=== PATIENT | female | born 1960 | race Caucasian/White ===

== ENCOUNTER → 2023-07-16 08:18 | Outpatient (REF) | payer OTHER, SELFPAY | LOC: WDC 08:18 | PROVIDERS: ATTENDING PHYSICIAN Family Medicine | DX: Z12.31 Encounter for screening mammogram for malignant neoplasm of breast (principal) | CPT/HCPCS: 77063; 77067 ==

== ENCOUNTER → 2024-07-28 17:41 | Outpatient (REF) | payer OTHER, SELFPAY | LOC: WDC 17:41 | PROVIDERS: ATTENDING PHYSICIAN Family Medicine | DX: Z12.31 Encounter for screening mammogram for malignant neoplasm of breast (principal) | CPT/HCPCS: 77063; 77067 ==

== ENCOUNTER → 2024-08-04 08:30 | Outpatient (REF) | payer OTHER, SELFPAY | LOC: WDC 08:30 | PROVIDERS: ATTENDING PHYSICIAN Family Medicine | DX: R92.8 Other abnormal and inconclusive findings on diagnostic imaging of breast (principal) | CPT/HCPCS: 76642 ==

== ENCOUNTER → 2024-08-13 08:13 | Outpatient (REF) | payer OTHER, SELFPAY ==
--- NOTE | 2024-08-13 14:46 | OID.BR.INTR ---
[facility] Breast Navigator - Initial
- -
Date of Contact: 08/13/24
Met with patient. Patient given written information on navigator services at [facility]. Will follow up as needed per protocol.
== END ==
LOC: WDC 08:13
PROVIDERS: ATTENDING PHYSICIAN Family Medicine
DX: N63.24 Unspecified lump in the left breast, lower inner quadrant (principal); N63.21 Unspecified lump in the left breast, upper outer quadrant
CPT/HCPCS: 88305; 19083; 19084; 88341; 88342; 88360; A4648

== ENCOUNTER 2024-09-09 06:04 | Day surgery (SDC) | payer OTHER, SELFPAY ==
[2024-09-03 10:31] LABS: ALT (SGPT) 16 U/L (0-35); AST (SGOT) 20 U/L (14-36); Albumin 4.6 g/dl (3.5-5.0); Alkaline Phosphatase 42 U/L (38-126); Blood Urea Nitrogen 14 mg/dl (7-17); Calcium 9.3 mg/dl (8.4-10.2); Carbon Dioxide 29 mmol/L (22-30); Chloride 105 mmol/L (98-107); Glucose 99 mg/dl (70-99); Potassium 4.1 mmol/L (3.5-5.1); Sodium 143 mmol/L (135-145); Total Bilirubin 0.7 mg/dl (0.2-1.3); Total Protein 7.3 g/dl (6.3-8.2); eGFR > 60.00
[2024-09-03 11:17] LABS: Prealbumin (Transthyretin) 28.4 mg/dl (17.6-36.0)
[2024-09-03 11:25] LABS: Vitamin D, 25-OH*** 35.9 ng/mL (30-80)
[2024-09-03 13:01] VITALS: BMI 26.0
[2024-09-09 06:34] VITALS: BMI 26.0
[2024-09-09 06:35] VITALS: BP 120/72
--- NOTE | 2024-09-09 07:01 | W.SUR.PREOP ---
Pre-Operative Surgical Note
-
I have examined this patient prior to the performance of the scheduled procedure.
The patient's condition is unchanged from the time of the current History and
Physical and the patient is able to undergo the scheduled procedure.
[2024-09-09 08:46] VITALS: BP 113/47
--- NOTE | 2024-09-09 08:59 | W.IMMPOSTOP ---
Surgical Immed Post Op Note
-
Primary Surgeon: Davidson
Assisting Surgeon: None
Pre-op Diagnosis: Left breast ca
Post-op Diagnosis: Left breast ca
Procedure Performed: Insertion right portacath
Anesthesia Type: TIVA
Specimen / Cultures: None
Estimated Blood Loss: 2cc
Complications: None
Operative Findings: None
[2024-09-09 09:00] VITALS: BP 108/62
--- NOTE | 2024-09-09 09:00 | OR.RPT ---
Operative Report
Operative Report
Date of Surgery: 09/09/24
Surgeon: Davidson
Pre-Op Diagnosis: Left breast ca
Post-Op Diagnosis: Left breast ca
Procedure: Insertion right portacath
The patient is a 63-year-old female with a diagnosis of left breast carcinoma requiring neoadjuvant chemotherapy who presents for right Port-A-Cath insertion. Patient presented to same-day surgical services and was prepped. DVT and antibiotic
prophylaxis were provided and she was taken to the operating room. In Trendelenburg position with shoulder roll in place, intravenous sedation was delivered. The right chest, neck, and shoulder were prepped and draped in the usual sterile fashion.
An appropriate timeout was performed by all staff.
Tissues were anesthetized with 1% lidocaine plain. Via Seldinger technique, the right subclavian vein was entered percutaneously on the first attempt. The guidewire was advanced under fluoroscopic guidance into the superior vena cava. The wire
was securely attached to the drapes. Inferior to the exit site of the guidewire, a subcutaneous pocket was fashioned sharply and with the cautery. A low-profile single-lumen port flushed with heparinized saline was passed into the port pocket.
The catheter was firmly attached and passed to the exit site of the guidewire. Using fluoroscopic guidance this was cut to a length of 17 cm.
The wire tract was dilated under fluoroscopic guidance. Dilator and sheath were passed over the wire and the wire and dilator were removed. The catheter passed easily into the superior vena cava and the tear-away sheath was removed. The port
aspirated and flushed well. The patient was taken out of Trendelenburg position. All tissues were anesthetized with 0.5% Marcaine plain. The wound was closed using simple interrupted 3-0 plain on subcutaneous tissue and a running subcuticular 4
Monocryl on skin. As the patient was receiving her first infusion this morning, the port was accessed. A serile dressing was applied and the patient was transferred to the recovery room where a stat portable chest x-ray will be obtained.
([id number])
[2024-09-09 09:15] VITALS: BP 115/48
[2024-09-09 09:30] VITALS: BP 102/56
== END 2024-09-09 10:53 | disposition home or self-care (01) ==
LOC: SDS 06:04
PROVIDERS: ATTENDING PHYSICIAN Surgery; FAMILY PHYSICIAN Family Medicine
DX: C50.912 Malignant neoplasm of unspecified site of left female breast (principal)
CPT/HCPCS: 36561; 36415; 71045; 80053; 82306; 84134; 93005; C1788

== ENCOUNTER → 2024-12-01 07:27 | Outpatient (REF) | payer OTHER, SELFPAY | LOC: RCS 07:27 | PROVIDERS: ATTENDING PHYSICIAN Nurse Practitioner Adult Health; FAMILY PHYSICIAN Family Medicine | DX: C50.312 Malignant neoplasm of lower-inner quadrant of left female breast (principal); L64.0 Drug-induced androgenic alopecia | CPT/HCPCS: 93306; 93356 ==

== ENCOUNTER 2025-03-22 14:19 | Emergency (ER) | payer OTHER, SELFPAY ==
[2025-03-22 14:21] VITALS: BP 138/83
[2025-03-22 14:56] VITALS: BMI 25.8
--- NOTE | 2025-03-22 15:11 | ED.SKININJ ---
Addendum entered and electronically signed by Vipul Pimentel PA-C 03/25/25 09:46:
Patient prescribed Keflex. Klebsiella on wound culture. Contacted patient who states infection is mostly resolved and seems to be healing well. At this time no change in antibiotics. Continue antibiotics until completion. Patient aware of
return precautions to the ER.
Original Note:
HPI-Injury
General
Chief Complaint: Skin Problem
Source: patient
Exam Limitations: none
Time Seen by Provider: 03/22/25 14:55
Nursing documentation reviewed up to this point in time: agreed with
History of Present Illness-Injury
Is this injury a work related problem?: No
Is pt an associate of [facility]?: No
Initial Injury comments:
Patient to the emergency department with complaint of painful skin abscess to superior scalp. States she has had scalp nodules for many years, occasionally they filled with fluid and need to be drained. States Sunday she noticed increased pain and
swelling to site. She denies fever or chills. She denies any history of MRSA. Brought self to the emergency department for evaluation.
Past History
Past History
ED Past Medical History: Cancer (Breast)
ED Past Surgical History: Tonsilectomy
Review of Systems
Review of Systems
Allergies reviewed?: Yes
All Other Systems: ROS reviewed and negative except as documented in HPI and ROS
Constitutional: Reports no symptoms
EENT: Reports no symptoms
Respiratory: Reports no symptoms
Cardiac: Reports no symptoms
ABD/GI: Reports no symptoms
: Reports no symptoms
Musculoskeletal: Reports no symptoms
Skin: Reports other (Skin abscess to superior scalp)
Neurological: Reports no symptoms
Psychiatric: Reports no symptoms
Skin Exam
Abscess
Superior scalp:
Description of abscess: fluctuant
Surrounding skin:: inflammed at abscess site
Phy Exam
General Physical Exam
General Presentation: well appearing and no apparent distress
General age: appears stated age
General Skin: warm and dry
General Habitus: normal
General Mental: alert
Skin Exam
Skin Exam: warm/dry, no rash and other (Skin abscess to superior scalp)
Psychiatric Exam
Psychiatric Exam: normal mood/affect
Course
Orders/Labs/Results
Orders:
Orders
03/22/25 15:08
Cephalexin Monohydrate [Keflex] 500 mg PO NOW STA
03/22/25 15:09
Wound Culture [Wound/Abscess/Other Culture] Urgent
BRAYNT Source: Abscess
Specimen Description:
Date Specimen was Collected: 03/22/25
Time Specimen was Collected: 15:10
Vital Signs
Initial and Last Documented VS:
Initial Vital Signs
Temp Pulse Resp BP Pulse Ox
98.5 F 91 16 138/83 98
03/22/25 14:21 03/22/25 14:21 03/22/25 14:21 03/22/25 14:21 03/22/25 14:21
Last Documented Vital Signs
Temp Pulse Resp BP Pulse Ox
98.5 F 91 16 138/83 98
03/22/25 14:21 03/22/25 14:21 03/22/25 14:21 03/22/25 14:21 03/22/25 14:21
Procedures
Incision/Drainage/Joint Aspiration
Superior scalp:
Anethesia: 1% Lidocaine
Preparation: cleaned with Betadine
Type of procedure: incise and drain
Nature of site: abscess
Description of abscess: less than 3cm
Loculations broken up: Yes
How much fluid was obtained?: large amount
Fluid description: purulent
Treatment: left open for drainage and antibiotics started
*Pulse Oximetry
SaO2: 98
Oxygen Mode of Delivery: Room air
Patient hypoxic: no
*Critical Care Note
Total Time (30-74mins, 75-104mins- exclusive of procedures): Not Applicable
Update Note
Update Note:
Patient to the emergency department for evaluation of skin abscess to superior scalp. States she has had multiple nodules on her scalp for many years. Sunday she noticed increase pain and swelling to the site. She denies fever or chills. Abscess
was infiltrated with lidocaine 1% and drained using #11 blade. Large amount of purulent discharge. Culture was obtained and sent. Will place on Keflex twice daily, first dose given in ED. She will follow-up with her family doctor. She was given
instructions on signs and symptoms to return to the emergency department and she is agreeable to this plan.
ED Attending Note
-
Portions of this chart may have been created with voice recognition software.� Occasional wrong word or��sound alike� substitutions may have occurred due to the inherent limitations of voice recognition software.
Discharge Plan
Departure
Patient Disposition: Home (Routine Discharge)
Date of Disposition: 03/22/25
Time of Disposition: 15:09
Patient with high blood pressure during this ER visit?: No
Condition: Good
Covid-19: Not Applicable
Discharge Problem:
Abscess of scalp
Instructions: Skin Abscess
Prescriptions:
New
cephalexin 500 mg capsule
500 mg PO BID 7 Days Qty: 14 0RF
Activity Restrictions/Additional Instructions:
Follow-up with your family doctor. Continue warm compresses, 15 to 20 minutes at a time, 4-5 times daily. Return to the emergency department for fever/chills, increasing pain/redness/swelling/drainage to site, or for any further concerns.
Interventions
Interventions:
*Risk Screen - Suicide Last Done: 03/22/25 14:21
*General Assessment Last Done: 03/22/25 14:55
*Neglect/Abuse Screening Last Done: 03/22/25 14:21
*ED- Fall Risk Assessment Last Done: 03/22/25 14:55
*ED COVID-19 Vaccine History Last Done: 03/22/25 14:55
*ED Influenza Vaccine History Last Done: 03/22/25 14:55
ED-Skin Assessment Last Done: 03/22/25 14:55
Discharge Date and Time
Print Language: CITIZEN OF [place]
[2025-03-22] MEDS: KEFLEX 500 MG PO (15:13)
== END 2025-03-22 15:20 | disposition home or self-care (01) ==
LOC: EMR 14:19
PROVIDERS: EMERGENCY PHYSICIAN Student in an Organized Health Care Education/Training Program; FAMILY PHYSICIAN Family Medicine
DX: L02.811 Cutaneous abscess of head [any part, except face] (principal); Z85.3 Personal history of malignant neoplasm of breast
CPT/HCPCS: 99283; 10060; 87070; 87077; 87186; 87205

== ENCOUNTER → 2025-03-30 09:19 | Outpatient (REF) | payer OTHER, SELFPAY | LOC: WDC 09:19 | PROVIDERS: ATTENDING PHYSICIAN Surgery | DX: C50.412 Malignant neoplasm of upper-outer quadrant of left female breast (principal) | CPT/HCPCS: 19285; 38792; 76942; A4648; A9541 ==

== ENCOUNTER 2025-03-31 06:28 | Day surgery (SDC) | payer OTHER, SELFPAY ==
[2025-03-17 11:01] LABS: Hematocrit 32.3 % (37.0-47.0); Hemoglobin 10.6 g/dL (12.0-16.0); Mean Corp Hgb Conc. 32.8 g/dL (33.0-37.0); Mean Corpuscular Volume 91.2 fL (81.0-99.0); Platelet Count 259 10^3/uL (130-400); Red Cell Dist. Width 15.7 % (11.5-14.5)
[2025-03-17 11:39] LABS: ALT (SGPT) 27 U/L (0-35); AST (SGOT) 33 U/L (14-36); Albumin 4.0 g/dl (3.5-5.0); Alkaline Phosphatase 46 U/L (38-126); Blood Urea Nitrogen 17 mg/dl (7-17); Calcium 9.3 mg/dl (8.4-10.2); Carbon Dioxide 29 mmol/L (22-30); Chloride 103 mmol/L (98-107); Glucose 85 mg/dl (70-99); Potassium 4.2 mmol/L (3.5-5.1); Sodium 139 mmol/L (135-145); Total Protein 6.6 g/dl (6.3-8.2); eGFR > 60.00
[2025-03-17 11:47] LABS: Prealbumin (Transthyretin) 27.7 mg/dl (17.6-36.0)
[2025-03-17 11:59] LABS: Vitamin D, 25-OH*** 27.3 ng/mL (30-80)
[2025-03-17 14:03] VITALS: BMI 26.0
[2025-03-31 11:20] VITALS: BP 131/80
[2025-03-31 11:24] VITALS: BMI 26.0
[2025-03-31] MEDS: TYLENOL 1000 MG PO (11:34)
[2025-03-31] MEDS: LOVENOX 40 MG SC (11:34)
[2025-03-31] MEDS: NORMOSOL-R/PLASMALYTE-A 1000 IV (11:34)
[2025-03-31 13:35] VITALS: BP 109/68
[2025-03-31 13:45] VITALS: BP 122/65
[2025-03-31 14:00] VITALS: BP 132/94
[2025-03-31 14:15] VITALS: BP 118/66
--- NOTE | 2025-03-31 14:19 | W.IMMPOSTOP ---
Surgical Immed Post Op Note
-
Primary Surgeon: Davidson
Assisting Surgeon: None
Pre-op Diagnosis: left breast ca S/P neoadjuvant chemotherapy
Post-op Diagnosis: same
Procedure Performed: left localized lumpectomy and sentinel node mapping and biopsy
Anesthesia Type: tiva
Specimen / Cultures: Left lumpectomy, margins,sentinel nodes
Estimated Blood Loss: 6cc
Complications: None
Operative Findings: Clip and reflector in specimen
--- NOTE | 2025-03-31 14:21 | OR.RPT ---
Addendum entered and electronically signed by Colette Cedeño MD 03/31/25 16:21:
The axillary dissection documentation is an error.
Original Note:
Operative Report
Operative Report
Date of procedure: 03/31/2025
Surgeon: Davidson
Procedure right localized lumpectomy and sentinel lymph node mapping and biopsy
Preoperative diagnosis: Left breast carcinoma status post neoadjuvant chemotherapy
Postoperative diagnosis: Same
The patient is a 64-year-old female who presented with interval change on screening mammography leading to a diagnosis of left triple negative breast carcinoma. She underwent neoadjuvant chemotherapy for T2 tumor and presents for surgical
resection. On the day prior to the procedure she presented to the [facility] where a Krysta reflector was placed at the tumor biopsy site. Technetium radiotracer was injected into the breast parenchyma. On the day of the procedure
she presented to the same-day surgical services unit. She verified site and procedures and was prepped. DVT and antibiotic prophylaxis were provided. She was transferred to the operating room and in the supine position intravenous sedation was
delivered. Left breast and axilla are prepped and draped in the usual sterile fashion. Appropriate timeout was performed by all staff members.
Due to the neoadjuvant chemotherapy treatment till radiotracer mass it was utilized and 1 cc of methylene blue was injected into the breast parenchyma. External massage was applied for 5 minutes. All tissues were anesthetized with 1% lidocaine
plain. Attention was first turned to the axilla where a curvilinear incision was made inferior to the hairline overlying the area of highest gamma count. Dissection was carried down through clavipectoral fascia using the cautery and 2 sentinel
node packets were encountered and excised. Feeding vessels were clamped and tied with 3-0 silk tie. After their removal, there was a greater than 4 fold reduction to background count. Hemostasis was verified. Marcaine 0.5% plain was instilled
and the wound was closed using simple interrupted 2-0 Polysorb on deep intermediate and subcutaneous tissue and skin was closed with a running subcuticular 4 Monocryl.
Then attention was turned to the lumpectomy. The Krysta signal was sounded and was at the edge of the nipple areolar complex at the 8 o'clock position. Therefore, a medial circumareolar incision was made sharply. The oncoplastic plane was entered
and elevated circumferentially. A wide lumpectomy was performed with the cautery. Time out of body was noted and the specimen was oriented for the pathologist. There is a strong Krysta signal within it. Specimen radiography confirmed the presence
of clip and Krysta obstetrician reflector within it. Additional margins were harvested for permanent analysis from the posterior, medial, superior, lateral, inferior, and anterior dimensions. These were oriented as well.
Hemostasis was verified in this wound. Hemoclips were placed in the resection cavity and Marcaine 0.5% plain was instilled. This wound was closed in the same manner as the axilla. Surgical glue and sterile compressive dressings were applied. All
sponge needle and instrument counts were correct the patient was transferred to same-day surgical services unit for recovery.
([id number])
Axillary Lymph Node Dissection
-
Operation performed with Curative Intent: Yes
Boundaries: Axillary Vein, Chest Wall, Latissimus Dorsi
Resection performed within boundaries: Yes
Nerves ID'd & Preserved during Dissection: Long Thoracic Nerves, Thoracodorsal Nerve and Branches of Intercostobrachial Nerves
Almond Node Bx Breast Cancer
Almond Node Bx Breast Cancer
Operation performed with curative intent: Yes
Tracer(s) to ID Almond Nodes in Non-Neoadjuvant setting: N/A
Tracer(s) to ID Sentinal Nodes in the Neoadjuvant Setting: Dye and Radioactive Tracer
All nodes at end of dye-filled Lymphatic Channel removed: Yes
All Significantly Radioactive Nodes were removed: Yes
All Palpably Suspicious Nodes were Removed: Yes
Bx Proven Pos Nodes Marked Prior to Chemo ID'd & Removed: N/A
== END 2025-03-31 14:28 | disposition home or self-care (01) ==
LOC: SDS 06:28
PROVIDERS: ATTENDING PHYSICIAN Surgery; FAMILY PHYSICIAN Family Medicine
DX: C50.912 Malignant neoplasm of unspecified site of left female breast (principal); Z92.21 Personal history of antineoplastic chemotherapy; Z17.1 Estrogen receptor negative status [ER-]
CPT/HCPCS: 38525; 38900; 19301; 36415; 76098; 80053; 82306; 84134; 85027; 88305; 88307; 88341; 88342; 88360; 93005